=== PATIENT | female | born 1965 | race Two or more races ===

== ENCOUNTER 2023-06-18 14:41 | Inpatient (IN) | payer MEDICAID ==
[~2023-06-18] VITALS: Ht 167.6 cm; Wt 80.8 kg
[2023-06-18] MEDS ORDERED: ZOLPIDEM TARTRATE 10 MG TABLET PO PRN (17:30)
[2023-06-18] MEDS ORDERED: LORazepam 2 MG TABLET PO PRN (17:30)
[2023-06-18] MEDS ORDERED: HALOPERIDOL 5 MG TABLET PO PRN (17:30)
[2023-06-18] MEDS ORDERED: PNEUMOCOCCAL VACCINE POLYVALENT 0.5 ML SYRINGE [PPSV23] IM. ONE (17:45)
[2023-06-18] MEDS ORDERED: INFLUENZA VIRUS VACCINE QVS 2023-24 (6MO+)/PF 60 MCG/0.5 ML SYRINGE IM. ONE (17:45)
[2023-06-18] MEDS ORDERED: SULF-261 PO (17:46)
[2023-06-18] MEDS ORDERED: ONDANSETRON HCL 4 MG TABLET PO PRN (18:00)
[2023-06-18] MEDS ORDERED: DOCUSATE SODIUM 100 MG CAPSULE PO PRN (18:00)
[2023-06-18] MEDS ORDERED: MAG HYDROX/ALUMINUM HYD/SIMETH ES 30 ML SUSPENSION UDCUP PO PRN (18:00)
[2023-06-18] MEDS ORDERED: ALBUTEROL SULFATE HFA 90 MCG/PUFF 8 GM INHALER IH PRN (18:00)
[2023-06-18] MEDS ORDERED: CloNIDine HCL 0.1 MG TABLET PO PRN (18:00)
[2023-06-18] MEDS ORDERED: PETROLATUM,WHITE 28 GM JELLY TP PRN (18:00)
[2023-06-18] MEDS ORDERED: LOPERAMIDE HCL 2 MG CAPSULE PO PRN (18:00)
[2023-06-18] MEDS ORDERED: BACITRACIN 28 GM OINTMENT TP PRN (18:00)
[2023-06-18] MEDS ORDERED: MAGNESIUM HYDROXIDE SUSPENSION 30 ML UDCUP PO PRN (18:00)
[2023-06-18] MEDS ORDERED: BENZOCAINE/MENTHOL LOZENGE PO PRN (18:00)
[2023-06-18] MEDS ORDERED: IBUPROFEN 600 MG TABLET PO PRN (18:00)
[2023-06-18] MEDS ORDERED: ACETAMINOPHEN 325 MG TABLET PO PRN (18:00)
[2023-06-18] MEDS ORDERED: OMEPRAZOLE 20 MG CAPSULE PO PRN (18:00)
[2023-06-18] MEDS ORDERED: GLUCAGON,HUMAN RECOMBINANT 1 MG VIAL IM PRN (18:15)
[2023-06-18 18:18] VITALS: BP 129/72; PULSE 83; RESP 18; TEMP 98; O2SAT 98
[2023-06-18 20:27] VITALS: BP 126/81; PULSE 89; RESP 18; TEMP 98.2; O2SAT 97
[2023-06-18] MEDS: SULFAMETHOX/TRIMETH DS 800-160 MG/TABLET PO SCH (21:55)
[2023-06-18] MEDS: INSULIN LISPRO 100 UNITS/ML SQ PRN (22:21)
[2023-06-18 22:41] LABS: GLUCOMETER DEV NAME(LOC) BV2S.; GLUCOSE,POINT OF CARE 160 MG/DL (70-110)
[2023-06-19] MEDS: INSULIN LISPRO 100 UNITS/ML SQ PRN ×2 (06:43→21:15)
[2023-06-19 07:11] LABS: GLUCOMETER DEV NAME(LOC) BV2S.; GLUCOSE,POINT OF CARE 234 MG/DL (70-110)
[2023-06-19 08:21] LABS: BASOPHILS % (AUTO) 0.7 % (0.0-2.0); EOSINOPHILS % (AUTO) 1.6 % (1.0-6.0); HEMATOCRIT 40.3 % (36-46); HEMOGLOBIN 13.8 g/dL (12.0-16.0); LYMPHOCYTES # (AUTO) 2.2 K/uL (1.0-4.8); LYMPHOCYTES % (AUTO) 27.7 % (22.0-44.0); MEAN CORPUSCULAR HEMOGLOBIN 31.9 pg (26.0-34.0); MEAN CORPUSCULAR HGB CONC 34.1 G/dL (31.0-37.0); MEAN CORPUSCULAR VOLUME 94 fL (80-100); MONOCYTES # (AUTO) 0.6 K/uL (0.1-1.0); MONOCYTES % (AUTO) 7.3 % (2.0-9.0); NEUTROPHILS % (AUTO) 62.7 % (40.0-70.0); PLATELET COUNT (AUTO) 308 K/uL (150-450); RED BLOOD CELL COUNT(AUTO) 4.32 MIL/uL (4.00-5.20); RED CELL DISTRIBUTION WIDTH 13.4 % (11.5-14.5)
[2023-06-19 08:38] LABS: HEMOGLOBIN A1C 7.4 % (3.8-5.6)
[2023-06-19] MEDS: SULFAMETHOX/TRIMETH DS 800-160 MG/TABLET PO SCH ×2 (08:50→16:36)
[2023-06-19 09:08] VITALS: BP 112/85; PULSE 85; RESP 17; TEMP 97.3; O2SAT 99
[2023-06-19 09:09] VITALS: RESP 18
[2023-06-19 09:16] LABS: ALANINE AMINOTRANSFERASE 34 U/L (12-78); ALBUMIN 3.5 g/dL (3.4-5.0); ALKALINE PHOSPHATASE 121 U/L (46-116); ANION GAP 6 mmol/L (8-16); ASPARTATE AMINOTRANSFERASE 25 U/L (15-37); BILIRUBIN,TOTAL 0.1 mg/dL (0.1-1.0); CALCIUM, TOTAL 9.4 mg/dL (8.8-10.5); CARBON DIOXIDE 28 mmol/L (22-29); CHLORIDE 102 mmol/L (98-107); CHOL/HDL RATIO 6.4 (3.9-5.7); CHOLESTEROL 256 mg/dL (131-200); FREE T4 (FREE THYROXINE) 0.99 ng/dL (0.76-1.46); GLOMERULAR FILTR. RATE CALC > 60 mL/min (>60); GLUCOSE,RANDOM 142 mg/dL (70-110); HDL CHOLESTEROL 40 mg/dL (40-60); LDL CHOL (CALC.) 158 mg/dL (0-130); POTASSIUM 4.4 mmol/L (3.5-5.1); SODIUM SERUM 136 mmol/L (136-145); THYROID STIMULATING HORMONE 1.12 uIU/mL (0.36-3.74); TOTAL PROTEIN, SERUM 8.2 g/dL (6.4-8.2); TRIGLYCERIDES 290 mg/dL (15-150); UREA NITROGEN, BLOOD 11 mg/dL (7-18)
[2023-06-19 09:17] VITALS: BP 112/85; PULSE 85; RESP 17; TEMP 97.3; O2SAT 99
[2023-06-19 09:50] VITALS: RESP 17
[2023-06-19 11:47] LABS: GLUCOMETER DEV NAME(LOC) BV2S.; GLUCOSE,POINT OF CARE 135 MG/DL (70-110)
[2023-06-19 20:56] VITALS: BP 117/60; PULSE 83; RESP 18; TEMP 98.1
[2023-06-19] MEDS: ATORVASTATIN CALCIUM 20 MG TABLET PO SCH (21:04)
[2023-06-19 21:21] LABS: GLUCOMETER DEV NAME(LOC) BV2S.; GLUCOSE,POINT OF CARE 174 MG/DL (70-110)
[2023-06-20 06:36] LABS: GLUCOMETER DEV NAME(LOC) BV2S.; GLUCOSE,POINT OF CARE 140 MG/DL (70-110)
[2023-06-20 08:42] VITALS: BP 113/70; PULSE 86; RESP 17; TEMP 98; O2SAT 97
[2023-06-20] MEDS: SULFAMETHOX/TRIMETH DS 800-160 MG/TABLET PO SCH ×2 (08:56→16:11)
[2023-06-20] MEDS: INSULIN LISPRO 100 UNITS/ML SQ PRN ×2 (11:47→17:01)
[2023-06-20 11:51] LABS: GLUCOMETER DEV NAME(LOC) BV2S.; GLUCOSE,POINT OF CARE 286 MG/DL (70-110)
[2023-06-20 20:06] LABS: GLUCOMETER DEV NAME(LOC) BV2S.; GLUCOSE,POINT OF CARE 261 MG/DL (70-110)
[2023-06-20] MEDS: ATORVASTATIN CALCIUM 20 MG TABLET PO SCH (20:20)
[2023-06-20 20:26] VITALS: BP 101/66; PULSE 79; RESP 18; TEMP 98.1; O2SAT 96
[2023-06-20] MEDS: OLANZapine 5 MG TABLET PO SCH (20:34)
[2023-06-21 06:16] LABS: GLUCOMETER DEV NAME(LOC) BV2S.; GLUCOSE,POINT OF CARE 133 MG/DL (70-110)
[2023-06-21 08:20] VITALS: BP 108/67; PULSE 78; RESP 17; TEMP 97.2; O2SAT 97
[2023-06-21] MEDS: SULFAMETHOX/TRIMETH DS 800-160 MG/TABLET PO SCH ×2 (08:37→16:56)
[2023-06-21] MEDS: DIVALPROEX SODIUM 500 MG DR TABLET PO SCH ×2 (08:37→16:56)
[2023-06-21] MEDS: INSULIN LISPRO 100 UNITS/ML SQ PRN ×3 (11:13→20:35)
[2023-06-21 11:31] LABS: GLUCOMETER DEV NAME(LOC) BV2S.; GLUCOSE,POINT OF CARE 235 MG/DL (70-110)
[2023-06-21 17:11] LABS: GLUCOMETER DEV NAME(LOC) BV2S.; GLUCOSE,POINT OF CARE 195 MG/DL (70-110)
[2023-06-21 20:18] VITALS: BP 99/56; PULSE 83; RESP 18; TEMP 97.9; O2SAT 98
[2023-06-21] MEDS: OLANZapine 5 MG TABLET PO SCH (20:24)
[2023-06-21] MEDS: ATORVASTATIN CALCIUM 20 MG TABLET PO SCH (20:24)
[2023-06-21 20:26] LABS: GLUCOMETER DEV NAME(LOC) BV2S.; GLUCOSE,POINT OF CARE 286 MG/DL (70-110)
[2023-06-22 06:27] LABS: GLUCOMETER DEV NAME(LOC) BV2S.; GLUCOSE,POINT OF CARE 157 MG/DL (70-110)
[2023-06-22] MEDS: INSULIN LISPRO 100 UNITS/ML SQ PRN ×4 (06:37→20:44)
[2023-06-22] MEDS: SULFAMETHOX/TRIMETH DS 800-160 MG/TABLET PO SCH ×2 (08:04→16:23)
[2023-06-22] MEDS: DIVALPROEX SODIUM 500 MG DR TABLET PO SCH ×2 (08:04→16:23)
[2023-06-22 09:51] VITALS: BP 114/71; PULSE 86; RESP 17; TEMP 97.4; O2SAT 99
[2023-06-22 11:31] LABS: GLUCOMETER DEV NAME(LOC) BV2S.; GLUCOSE,POINT OF CARE 333 MG/DL (70-110)
[2023-06-22 16:47] LABS: GLUCOMETER DEV NAME(LOC) BV2S.; GLUCOSE,POINT OF CARE 368 MG/DL (70-110)
[2023-06-22] MEDS: ATORVASTATIN CALCIUM 20 MG TABLET PO SCH (20:35)
[2023-06-22] MEDS: OLANZapine 5 MG TABLET PO SCH (20:35)
[2023-06-22 20:51] LABS: GLUCOMETER DEV NAME(LOC) BV2S.; GLUCOSE,POINT OF CARE 330 MG/DL (70-110)
[2023-06-22 20:55] VITALS: BP 111/63; PULSE 100; RESP 18; TEMP 97.8; O2SAT 97
[2023-06-23 06:27] LABS: GLUCOMETER DEV NAME(LOC) BV2S.; GLUCOSE,POINT OF CARE 230 MG/DL (70-110)
[2023-06-23] MEDS: INSULIN LISPRO 100 UNITS/ML SQ PRN ×4 (06:35→20:38)
[2023-06-23] MEDS: DIVALPROEX SODIUM 500 MG DR TABLET PO SCH ×2 (08:37→16:34)
[2023-06-23] MEDS: SULFAMETHOX/TRIMETH DS 800-160 MG/TABLET PO SCH ×2 (08:37→16:34)
[2023-06-23 08:41] VITALS: BP 105/67; PULSE 83; RESP 16; TEMP 97.3; O2SAT 99
[2023-06-23 16:56] LABS: GLUCOMETER DEV NAME(LOC) BV2S.; GLUCOSE,POINT OF CARE 306 MG/DL (70-110)
[2023-06-23 16:56] LABS: GLUCOMETER DEV NAME(LOC) BV2S.; GLUCOSE,POINT OF CARE 389 MG/DL (70-110)
[2023-06-23] MEDS: ATORVASTATIN CALCIUM 20 MG TABLET PO SCH (20:33)
[2023-06-23] MEDS: OLANZapine 5 MG TABLET PO SCH (20:33)
[2023-06-23 21:11] LABS: GLUCOMETER DEV NAME(LOC) BV2S.; GLUCOSE,POINT OF CARE 312 MG/DL (70-110)
[2023-06-23 22:01] VITALS: BP 114/67; PULSE 78; RESP 17; TEMP 97.8; O2SAT 97
[2023-06-24 06:36] LABS: GLUCOMETER DEV NAME(LOC) BV2S.; GLUCOSE,POINT OF CARE 165 MG/DL (70-110)
[2023-06-24] MEDS: INSULIN LISPRO 100 UNITS/ML SQ PRN ×4 (06:39→20:44)
[2023-06-24 07:57] LABS: APPEARANCE,URINE CLEAR (CLEAR); BILIRUBIN,URINE NEGATIVE (NEGATIVE); COLOR,URINE LIGHT YELLOW (YELLOW); GLUCOSE, URINE (UA) >=1000 mg/dL (NEGATIVE); KETONES,URINE TRACE mg/dL (NEGATIVE); LEUKOCYTE ESTERASE ,URINE NEGATIVE (NEGATIVE); NITRATE,URINE NEGATIVE (NEGATIVE); OCCULT BLOOD,URINE NEGATIVE (NEGATIVE); PROTEIN,URINE NEGATIVE (NEGATIVE); SPECIFIC GRAVITIY, URINE 1.024 (1.003-1.030); UROBILINOGEN,URINE <=1.0 mg/dL (<=1.0)
[2023-06-24 08:04] VITALS: BP 104/65; PULSE 87; RESP 17; TEMP 97.6; O2SAT 97
[2023-06-24 08:11] LABS: AMPHET/METH SCREEN,URINE NEGATIVE (NEGATIVE); BARBITURATE SCREEN, URINE NEGATIVE (NEGATIVE); BENZODIAZEPINES SCREEN,URINE NEGATIVE (NEGATIVE); CANNABINOID SCREEN,URINE NEGATIVE (NEGATIVE); COCAINE SCREEN,URINE NEGATIVE (NEGATIVE); METHADONE SCREEN, URINE NEGATIVE (NEGATIVE); OPIATE SCREEN,URINE NEGATIVE (NEGATIVE); PHENCYCLIDINE SCREEN,URINE NEGATIVE (NEGATIVE)
[2023-06-24 08:14] LABS: ALCOHOL, URINE DRUG SCREEN NEGATIVE (NEGATIVE)
[2023-06-24 08:18] LABS: BACTERIA,URINE None Seen /HPF (None Seen); RBC,URINE None Seen /HPF (0-2); SQUAMOUS EPITHELIAL CELL,UR Few /LPF (None Seen); WBC,URINE None Seen /HPF (0-5)
[2023-06-24] MEDS: DIVALPROEX SODIUM 500 MG DR TABLET PO SCH ×2 (08:30→16:47)
[2023-06-24 12:21] LABS: GLUCOMETER DEV NAME(LOC) BV2S.; GLUCOSE,POINT OF CARE 332 MG/DL (70-110)
[2023-06-24 17:16] LABS: GLUCOMETER DEV NAME(LOC) BV2S.; GLUCOSE,POINT OF CARE 382 MG/DL (70-110)
[2023-06-24] MEDS: OLANZapine 5 MG TABLET PO SCH (20:31)
[2023-06-24] MEDS: ATORVASTATIN CALCIUM 20 MG TABLET PO SCH (20:31)
[2023-06-24 20:44] VITALS: BP 110/63; PULSE 87; RESP 16; TEMP 97.9; O2SAT 98
[2023-06-24 21:11] LABS: GLUCOMETER DEV NAME(LOC) BV2S.; GLUCOSE,POINT OF CARE 352 MG/DL (70-110)
[2023-06-25 06:26] LABS: GLUCOMETER DEV NAME(LOC) BV2S.; GLUCOSE,POINT OF CARE 203 MG/DL (70-110)
[2023-06-25] MEDS: INSULIN LISPRO 100 UNITS/ML SQ PRN ×4 (06:31→21:04)
[2023-06-25] MEDS: DIVALPROEX SODIUM 500 MG DR TABLET PO SCH ×2 (08:01→16:36)
[2023-06-25 08:30] VITALS: BP 113/66; PULSE 84; RESP 16; TEMP 97.3; O2SAT 97
[2023-06-25 11:56] LABS: GLUCOMETER DEV NAME(LOC) BV2S.; GLUCOSE,POINT OF CARE 381 MG/DL (70-110)
[2023-06-25] MEDS ORDERED: GLUCAGON,HUMAN RECOMBINANT 1 MG VIAL IM PRN (12:00)
[2023-06-25 16:31] LABS: GLUCOMETER DEV NAME(LOC) BV2S.; GLUCOSE,POINT OF CARE 308 MG/DL (70-110)
[2023-06-25 20:13] VITALS: BP 125/74; PULSE 68; RESP 18; TEMP 97.7
[2023-06-25] MEDS: OLANZapine 5 MG TABLET PO SCH (20:22)
[2023-06-25] MEDS: ATORVASTATIN CALCIUM 20 MG TABLET PO SCH (20:22)
[2023-06-25 21:16] LABS: GLUCOMETER DEV NAME(LOC) BV2S.; GLUCOSE,POINT OF CARE 284 MG/DL (70-110)
[2023-06-25] MEDS: INSULIN GLARGINE,HUM.REC.ANLOG 100 UNITS/ML SQ SCH (23:06)
[2023-06-26] MEDS: MetFORMIN HCL 500 MG TABLET PO SCH ×2 (06:02→16:17)
[2023-06-26] MEDS: INSULIN LISPRO 100 UNITS/ML SQ PRN ×3 (06:04→20:46)
[2023-06-26 08:55] VITALS: BP 124/75; PULSE 98; RESP 18; TEMP 97.5; O2SAT 97
[2023-06-26] MEDS: DIVALPROEX SODIUM 500 MG DR TABLET PO SCH ×2 (09:51→16:17)
[2023-06-26 16:01] VITALS: BP 115/69; PULSE 97; RESP 18; TEMP 98.3; O2SAT 98
[2023-06-26 17:17] LABS: GLUCOMETER DEV NAME(LOC) BV2S.; GLUCOSE,POINT OF CARE 282 MG/DL (70-110)
[2023-06-26 17:17] LABS: GLUCOMETER DEV NAME(LOC) BV2S.; GLUCOSE,POINT OF CARE 370 MG/DL (70-110)
[2023-06-26] MEDS: ATORVASTATIN CALCIUM 20 MG TABLET PO SCH (20:30)
[2023-06-26] MEDS: OLANZapine 5 MG TABLET PO SCH (20:30)
[2023-06-26] MEDS: INSULIN GLARGINE,HUM.REC.ANLOG 100 UNITS/ML SQ SCH (20:37)
[2023-06-26 23:00] VITALS: BP 118/62; PULSE 85; RESP 16; TEMP 97.8; O2SAT 96
[2023-06-26 23:01] LABS: GLUCOMETER DEV NAME(LOC) BV2S.; GLUCOSE,POINT OF CARE 346 MG/DL (70-110)
[2023-06-27] MEDS: MetFORMIN HCL 500 MG TABLET PO SCH ×2 (06:42→16:15)
[2023-06-27] MEDS: INSULIN LISPRO 100 UNITS/ML SQ PRN ×4 (06:44→21:54)
[2023-06-27 08:19] VITALS: BP 120/57; PULSE 87; RESP 17; TEMP 97.8; O2SAT 98
[2023-06-27 08:36] LABS: GLUCOMETER DEV NAME(LOC) BV2S.; GLUCOSE,POINT OF CARE 293 MG/DL (70-110)
[2023-06-27] MEDS: DIVALPROEX SODIUM 500 MG DR TABLET PO SCH ×2 (09:53→16:15)
[2023-06-27 11:36] LABS: GLUCOMETER DEV NAME(LOC) BV2S.; GLUCOSE,POINT OF CARE 335 MG/DL (70-110)
[2023-06-27 20:00] VITALS: BP 119/74; PULSE 89; RESP 18; TEMP 97.2; O2SAT 96
[2023-06-27 20:26] LABS: GLUCOMETER DEV NAME(LOC) BV2S.; GLUCOSE,POINT OF CARE 368 MG/DL (70-110)
[2023-06-27 20:26] LABS: GLUCOMETER DEV NAME(LOC) BV2S.; GLUCOSE,POINT OF CARE 317 MG/DL (70-110)
[2023-06-27] MEDS: OLANZapine 5 MG TABLET PO SCH (21:48)
[2023-06-27] MEDS: ATORVASTATIN CALCIUM 20 MG TABLET PO SCH (21:48)
[2023-06-27] MEDS: INSULIN GLARGINE,HUM.REC.ANLOG 100 UNITS/ML SQ SCH (21:54)
[2023-06-28 05:51] LABS: GLUCOMETER DEV NAME(LOC) BV2S.; GLUCOSE,POINT OF CARE 282 MG/DL (70-110)
[2023-06-28] MEDS: MetFORMIN HCL 500 MG TABLET PO SCH ×2 (06:46→16:16)
[2023-06-28] MEDS: INSULIN LISPRO 100 UNITS/ML SQ PRN ×3 (06:51→20:43)
[2023-06-28 09:08] VITALS: BP 125/79; PULSE 95; RESP 17; TEMP 97.9; O2SAT 95
[2023-06-28] MEDS: DIVALPROEX SODIUM 500 MG DR TABLET PO SCH ×2 (09:12→16:16)
[2023-06-28] MEDS ORDERED: INSULIN LISPRO 100 UNITS/ML SQ ONE (12:00)
[2023-06-28 12:12] LABS: GLUCOMETER DEV NAME(LOC) BV2S.; GLUCOSE,POINT OF CARE 441 MG/DL (70-110)
[2023-06-28 13:57] LABS: GLUCOMETER DEV NAME(LOC) BV2S.; GLUCOSE,POINT OF CARE 381 MG/DL (70-110)
[2023-06-28 16:41] LABS: GLUCOMETER DEV NAME(LOC) BV2S.; GLUCOSE,POINT OF CARE 306 MG/DL (70-110)
[2023-06-28] MEDS: OLANZapine 5 MG TABLET PO SCH (20:32)
[2023-06-28] MEDS: ATORVASTATIN CALCIUM 20 MG TABLET PO SCH (20:32)
[2023-06-28 20:45] VITALS: BP 132/80; PULSE 85; RESP 18; TEMP 97.8; O2SAT 98
[2023-06-28 20:51] LABS: GLUCOMETER DEV NAME(LOC) BV2S.; GLUCOSE,POINT OF CARE 241 MG/DL (70-110)
[2023-06-28] MEDS ORDERED: INSULIN GLARGINE,HUM.REC.ANLOG 100 UNITS/ML SQ SCH (21:00)
[2023-06-29 07:01] LABS: GLUCOMETER DEV NAME(LOC) BV2S.; GLUCOSE,POINT OF CARE 147 MG/DL (70-110)
[2023-06-29] MEDS: MetFORMIN HCL 500 MG TABLET PO SCH (07:11)
[2023-06-29] MEDS: INSULIN LISPRO 100 UNITS/ML SQ PRN ×2 (07:12→11:39)
[2023-06-29 08:06] VITALS: BP 120/70; PULSE 100; RESP 18; TEMP 97.6; O2SAT 98
[2023-06-29] MEDS: DIVALPROEX SODIUM 500 MG DR TABLET PO SCH (08:20)
[2023-06-29] MEDS ORDERED: DIVA-112 PO (15:24)
[2023-06-29] MEDS ORDERED: OLAN5TAB52 PO (15:25)
[2023-06-29] MEDS ORDERED: ATOR40TA28 PO (15:39)
[2023-06-29] MEDS ORDERED: METF-1211 PO (15:39)
[2023-06-29] MEDS ORDERED: INSLAN SQ (15:40)
[2023-06-30 06:26] LABS: GLUCOMETER DEV NAME(LOC) BV2S.; GLUCOSE,POINT OF CARE 366 MG/DL (70-110)
== END 2023-06-29 17:05 | disposition home or self-care (01) | DRG 750 ==
LOC: B2S 17:31
PROVIDERS: ADMIT Psychiatry & Neurology Psychiatry; ATTEND Psychiatry & Neurology Psychiatry
DX: F20.9 Schizophrenia, unspecified (principal); E11.9 Type 2 diabetes mellitus without complications; F41.9 Anxiety disorder, unspecified; G47.00 Insomnia, unspecified; I10 Essential (primary) hypertension; E78.5 Hyperlipidemia, unspecified; K59.00 Constipation, unspecified; F32.A Depression, unspecified; Z88.8 Allergy status to other drugs, medicaments and biological substances
CPT/HCPCS: 80053; 80061; 80164; 80307; 81001; 82962; 83036; 84439; 84443; 85025; J1815